=== PATIENT | female | born 1990 | race Caucasian/White ===

== ENCOUNTER → 2024-05-12 10:42 | Outpatient (REF) | payer OTHER, SELFPAY | LOC: HWRAD 10:42 | PROVIDERS: ATTENDING PHYSICIAN Nurse Practitioner Family; FAMILY PHYSICIAN Physician Assistant Medical | DX: Z34.90 Encounter for supervision of normal pregnancy, unspecified, unspecified trimester (principal) | CPT/HCPCS: 76801 ==

== ENCOUNTER → 2024-06-03 12:22 | Outpatient (REF) | payer OTHER, SELFPAY | LOC: PNTC 12:22 | PROVIDERS: ATTENDING PHYSICIAN Obstetrics & Gynecology | DX: O34.40 Maternal care for other abnormalities of cervix, unspecified trimester (principal) | CPT/HCPCS: 76801; 76813 ==

== ENCOUNTER → 2024-07-27 06:55 | Outpatient (REF) | payer OTHER, SELFPAY | LOC: PNTC 06:55 | PROVIDERS: ATTENDING PHYSICIAN Obstetrics & Gynecology | DX: O34.40 Maternal care for other abnormalities of cervix, unspecified trimester (principal) | CPT/HCPCS: 76805 ==

== ENCOUNTER → 2024-09-23 16:21 | Outpatient (REF) | payer OTHER, SELFPAY | LOC: REG 16:21 | PROVIDERS: ATTENDING PHYSICIAN Obstetrics & Gynecology; FAMILY PHYSICIAN Physician Assistant Medical | DX: Z34.90 Encounter for supervision of normal pregnancy, unspecified, unspecified trimester (principal) | CPT/HCPCS: 36415; 86850; 86900; 86901; J2790 ==

== ENCOUNTER → 2024-11-10 07:28 | Outpatient (REF) | payer OTHER, SELFPAY | LOC: PNTC 07:28 | PROVIDERS: ATTENDING PHYSICIAN Obstetrics & Gynecology | DX: O26.849 Uterine size-date discrepancy, unspecified trimester (principal) | CPT/HCPCS: 59025; 76816 ==

== ENCOUNTER → 2024-11-17 10:56 | Outpatient (REF) | payer OTHER, SELFPAY | LOC: PNTC 10:56 | PROVIDERS: ATTENDING PHYSICIAN Obstetrics & Gynecology | DX: O26.849 Uterine size-date discrepancy, unspecified trimester (principal) | CPT/HCPCS: 59025; 76815; 76820 ==

== ENCOUNTER → 2024-11-24 14:54 | Outpatient (REF) | payer OTHER, SELFPAY | LOC: PNTC 14:54 | PROVIDERS: ATTENDING PHYSICIAN Obstetrics & Gynecology | DX: O36.5930 Maternal care for other known or suspected poor fetal growth, third trimester, not applicable or unspecified (principal); O26.843 Uterine size-date discrepancy, third trimester | CPT/HCPCS: 59025; 76816; 76820 ==

== ENCOUNTER → 2024-12-01 06:50 | Outpatient (REF) | payer OTHER, SELFPAY | LOC: PNTC 06:50 | PROVIDERS: ATTENDING PHYSICIAN Obstetrics & Gynecology | DX: O36.5990 Maternal care for other known or suspected poor fetal growth, unspecified trimester, not applicable or unspecified (principal) | CPT/HCPCS: 59025; 76815; 76820 ==

== ENCOUNTER 2024-12-07 16:33 | Inpatient (IN) | payer OTHER, SELFPAY ==
[2024-12-07 16:39] VITALS: BMI 25.2
[2024-12-07 16:42] VITALS: BP 126/78
[2024-12-07 18:06] LABS: % Basophils 0.3 % (0-2); % Eosinophils 0.6 % (0-6); % Immature Granulocytes 0.5 % (0-0.5); % Lymphocytes 16.2 % (20.5-51.1); % Monocytes 4.6 % (1.7-9.3); % Neutrophils 77.8 % (42.2-75.2); Absolute Eosinophils 0.1 10^3/uL (0-0.7); Absolute Immature Granulocytes 0.1 10^3/uL (0-0.05); Absolute Lymphocytes 2.1 10^3/uL (1.2-3.4); Absolute Monocytes 0.6 10^3/uL (0.1-0.6); Absolute Neutrophils 9.9 10^3/uL (1.4-6.5); Hematocrit 36.2 % (37.0-47.0); Hemoglobin 12.7 g/dL (12.0-16.0); Mean Corp Hgb Conc. 35.1 g/dL (33.0-37.0); Mean Corpuscular Hgb 30.8 pg (27.0-31.0); Mean Corpuscular Volume 87.9 fL (81.0-99.0); Mean Platelet Volume 9.6 fL (7.4-10.4); Nucleated Red Blood Cells % 0 %; Platelet Count 261 10^3/uL (130-400); Red Blood Cell Count 4.12 10^6/uL (4.20-5.40); Red Cell Dist. Width 12.3 % (11.5-14.5); White Blood Cell Count 12.7 10^3/uL (4.8-10.8)
[2024-12-08] MEDS: TYLENOL 650 MG PO ×3 (00:25→18:05)
[2024-12-08] MEDS: LR 1000 IV (05:12)
[2024-12-08] MEDS: PITOCIN 30 UNITS/NSS 500 ML IV (05:13)
[2024-12-08] MEDS: MOTRIN 600 MG PO ×2 (10:58→17:02)
[2024-12-09] MEDS: MOTRIN 600 MG PO ×2 (00:22→08:57)
[2024-12-09] MEDS: TYLENOL 650 MG PO ×2 (00:22→08:58)
[2024-12-09 05:25] LABS: Hematocrit 34.3 % (37.0-47.0); Hemoglobin 11.6 g/dL (12.0-16.0)
[2024-12-09] MEDS: PRENATAL PLUS 1 TABLET PO (08:57)
[2024-12-09] MEDS: SENOKOT-S 1 TABLET PO (08:57)
[2024-12-09] MEDS: RHOGAM 300 MCG IM (10:49)
[2024-12-10 13:21] LABS: Syphilis/T. pallidum Ab Reflex Negative (Negative)
== END 2024-12-09 14:30 | disposition home or self-care (01) | DRG 807 ==
LOC: LDRP 16:33
PROVIDERS: Obstetrics & Gynecology; ADMITTING PHYSICIAN Obstetrics & Gynecology; FAMILY PHYSICIAN Family Medicine
PROC: 10E0XZZ Delivery of Products of Conception, External Approach (ICD-10-PCS; 2024-12-08)
PROC: 0HQ9XZZ Repair Perineum Skin, External Approach (ICD-10-PCS; 2024-12-08)
PROC: 10907ZC Drainage of Amniotic Fluid, Therapeutic from Products of Conception, Via Natural or Artificial Opening (ICD-10-PCS; 2024-12-08)
DX: O70.0 First degree perineal laceration during delivery (principal); Z37.0 Single live birth; Z3A.39 39 weeks gestation of pregnancy
CPT/HCPCS: 36415; 85014; 85018; 85025; 85461; 86780; 86850; 86870; 86900; 86901; J2790

== ENCOUNTER → 2025-06-17 14:57 | Outpatient (REF) | payer OTHER, SELFPAY | LOC: HWRCS 14:57 | PROVIDERS: ATTENDING PHYSICIAN Student in an Organized Health Care Education/Training Program; FAMILY PHYSICIAN Physician Assistant Medical | DX: R42 Dizziness and giddiness (principal) | CPT/HCPCS: 93306 ==